=== PATIENT | female | born 1960 | race Caucasian/White ===

== ENCOUNTER 2023-02-24 07:39 | Day surgery (SDC) | payer MEDICAID, OTHER ==
[~2023-02-24] VITALS: Ht 157.5 cm; Wt 89.0 kg
[~2023-02-24 07:39] MED LIST: AMLO5TAB66 PO; ASPI-1444 PO; ATOR40TA28 PO; INSNPH SQ; LISI-894 PO; METF-1211 PO; OMEP20CA12 PO; SODIUM CHLORIDE 0.9% 1,000 ML IV ONE
[2023-02-24] MEDS ORDERED: SODIUM CHLORIDE 0.9% 1,000 ML ONE (07:50)
[2023-02-24 08:41] LABS: GLUCOMETER DEV NAME(LOC) SDS.; GLUCOSE,POINT OF CARE 142 MG/DL (70-110)
== END 2023-02-24 12:00 | disposition home or self-care (01) ==
LOC: SURGERY 07:39
PROVIDERS: ATTEND Internal Medicine Gastroenterology
DX: K63.5 Polyp of colon (principal); I10 Essential (primary) hypertension; E78.5 Hyperlipidemia, unspecified; Z90.710 Acquired absence of both cervix and uterus; Z98.890 Other specified postprocedural states; E66.9 Obesity, unspecified; Z68.38 Body mass index [BMI] 38.0-38.9, adult; Z79.899 Other long term (current) drug therapy
CPT/HCPCS: 45380; 82962; 88305; J7030